=== PATIENT | female | born 1950 | race Caucasian/White ===

== ENCOUNTER → 2020-01-04 | Outpatient (CLI) | payer MEDICARE ==
[2020-01-04 13:32] LABS: BASOPHILS ABSOLUTE AUTO 0.03 K/mm3 (0.00-0.23); BASOPHILS PERCENT AUTO 0 % (0-2); EOSINOPHILS ABSOLUTE AUTO 0.16 K/mm3 (0.00-0.68); EOSINOPHILS PERCENT AUTO 1 % (0-6); Hematocrit 28.3 % (33.0-51.0); Hemoglobin 8.8 g/dL (11.5-16.0); IMMATURE GRAN ABSOLUTE AUTO 0.16 K/mm3 (0.00-0.10); IMMATURE GRAN PERCENT AUTO 1 % (0-1); LYMPHOCYTES ABSOLUTE AUTO 3.18 K/mm3 (0.84-5.20); LYMPHOCYTES PERCENT AUTO 26 % (21-46); MONOCYTES ABSOLUTE AUTO 1.22 K/mm3 (0.16-1.47); MONOCYTES PERCENT AUTO 10 % (4-13); Mean Corpuscular HGB 29.3 pg (26.0-34.0); Mean Corpuscular HGB Conc 31.1 g/dL (31.5-36.5); Mean Corpuscular Volume 94 fL (80-100); Mean Platelet Volume 9.6 fL (9.1-12.4); NEUTROPHILS ABSOLUTE AUTO 7.54 K/mm3 (1.96-9.15); NEUTROPHILS PERCENT AUTO 61 % (41-73); Platelet Count 755 K/mm3 (150-400); RDW Coefficient Variation 15.2 % (11.7-14.2); RDW Standard Deviation 52.5 fL (35.1-46.3); White Blood Cell Count 12.29 K/mm3 (4.00-11.30)
[2020-01-04 14:08] LABS: Alanine Aminotransfer (ALT/SGP 47 U/L (12-78); Albumin, Blood 1.7 g/dL (3.4-5.0); Albumin/Globulin Ratio 0.3 (0.8-1.8); Alk Phos 114 U/L (50-136); Anion Gap 4 mmol/L (6-16); Aspartate Aminotrans (AST/SGOT 43 U/L (12-37); Bilirubin, Direct <0.1 mg/dL (0.0-0.3); Bilirubin, Indirect Unable to Calculate mg/dL (0.1-0.7); Bilirubin, Total 0.2 mg/dL (0.1-1.0); Blood Urea Nitrogen 27 mg/dL (8-24); CO2, Blood 27 mmol/L (21-32); Chloride, Blood 103 mmol/L (98-108); Creatinine, Blood 0.48 mg/dL (0.40-1.00); Globulin, Blood 4.9 g/dL (2.2-4.0); Glomerular Filtration Rate >60 (60-); Glucose, Blood 99 mg/dL (70-99); Phosphorus, Blood 4.2 mg/dL (2.5-4.9); Potassium, Blood 4.5 mmol/L (3.5-5.5); Sodium, Blood 134 mmol/L (136-145); Total Protein, Blood 6.6 g/dL (6.4-8.2); Triglycerides 78 mg/dL (30-160)
== END | disposition home or self-care (01) ==
LOC: LAB SHORT 12:25 → LAB 12:25
PROVIDERS: Surgery
DX: K50.118 Crohn's disease of large intestine with other complication (principal); E43 Unspecified severe protein-calorie malnutrition; D64.9 Anemia, unspecified
CPT/HCPCS: 80053; 82248; 83735; 84100; 84478; 85025

== ENCOUNTER → 2020-01-18 | Outpatient (CLI) | payer MEDICARE ==
[2020-01-18 19:30] LABS: BASOPHILS ABSOLUTE AUTO 0.03 K/mm3 (0.00-0.23); BASOPHILS PERCENT AUTO 0 % (0-2); EOSINOPHILS ABSOLUTE AUTO 0.09 K/mm3 (0.00-0.68); EOSINOPHILS PERCENT AUTO 1 % (0-6); Hematocrit 28.2 % (33.0-51.0); Hemoglobin 8.8 g/dL (11.5-16.0); IMMATURE GRAN ABSOLUTE AUTO 0.13 K/mm3 (0.00-0.10); IMMATURE GRAN PERCENT AUTO 1 % (0-1); LYMPHOCYTES PERCENT AUTO 19 % (21-46); MONOCYTES ABSOLUTE AUTO 1.14 K/mm3 (0.16-1.47); MONOCYTES PERCENT AUTO 9 % (4-13); Mean Corpuscular HGB 27.8 pg (26.0-34.0); Mean Corpuscular HGB Conc 31.2 g/dL (31.5-36.5); Mean Corpuscular Volume 89 fL (80-100); Mean Platelet Volume 9.4 fL (9.1-12.4); NEUTROPHILS PERCENT AUTO 71 % (41-73); Platelet Count 370 K/mm3 (150-400); RDW Coefficient Variation 15.4 % (11.7-14.2); RDW Standard Deviation 50.5 fL (35.1-46.3); Red Blood Cell Count 3.17 M/mm3 (3.80-5.20); White Blood Cell Count 13.49 K/mm3 (4.00-11.30)
[2020-01-18 20:30] LABS: Alanine Aminotransfer (ALT/SGP 36 U/L (12-78); Albumin, Blood 1.7 g/dL (3.4-5.0); Albumin/Globulin Ratio 0.3 (0.8-1.8); Alk Phos 103 U/L (50-136); Anion Gap 7 mmol/L (6-16); Aspartate Aminotrans (AST/SGOT 29 U/L (12-37); Bilirubin, Direct 0.1 mg/dL (0.0-0.3); Bilirubin, Indirect 0.3 mg/dL (0.1-0.7); Bilirubin, Total 0.4 mg/dL (0.1-1.0); Blood Urea Nitrogen 20 mg/dL (8-24); Bun/Creatinine Ratio 40.2 (12.0-20.0); CO2, Blood 25 mmol/L (21-32); Calcium, Blood 7.6 mg/dL (8.5-10.1); Chloride, Blood 101 mmol/L (98-108); Glomerular Filtration Rate >60 (60-); Glucose, Blood 76 mg/dL (70-99); Magnesium, Blood 1.9 mg/dL (1.6-2.4); Phosphorus, Blood 3.3 mg/dL (2.5-4.9); Potassium, Blood 3.7 mmol/L (3.5-5.5); Sodium, Blood 133 mmol/L (136-145); Total Protein, Blood 6.7 g/dL (6.4-8.2); Triglycerides 58 mg/dL (30-160)
== END | disposition home or self-care (01) ==
LOC: LAB 19:19 → LAB SHORT 19:19
PROVIDERS: Pediatrics
DX: Z48.815 Encounter for surgical aftercare following surgery on the digestive system (principal); Z45.2 Encounter for adjustment and management of vascular access device; Z43.2 Encounter for attention to ileostomy; K50.118 Crohn's disease of large intestine with other complication; D64.9 Anemia, unspecified; E43 Unspecified severe protein-calorie malnutrition; Z98.84 Bariatric surgery status
CPT/HCPCS: 80053; 82248; 83735; 84100; 84478; 85025

== ENCOUNTER → 2020-10-31 | Outpatient (CLI) | payer MEDICARE ==
[2020-10-31 17:56] LABS: Appearance, Urine Clear (Clear); Bilirubin, Urine Neg (Neg); Blood, Urine Neg (Neg); Color, Urine Yellow (P-Yellow); Glucose Qualitative, Urine Neg (Neg); Ketones, Urine Neg (Neg); Leukocyte Esterase, Urine 1+ (Neg); Nitrite, Urine Neg (Neg); Protein, Urine Neg (Neg); Urobilinogen, Urine NORM (Normal)
[2020-10-31 18:41] LABS: Bacteria Few /hpf; Red Blood Cells, Urine 0-2 /hpf (0-2); Squamous Epithelial Cells Few /hpf (Few)
== END | disposition home or self-care (01) ==
LOC: LAB HH 16:07 → LAB 16:07
PROVIDERS: Pediatrics
DX: N39.0 Urinary tract infection, site not specified (principal); R39.9 Unspecified symptoms and signs involving the genitourinary system
CPT/HCPCS: 81001; 87086

== ENCOUNTER 2023-05-21 04:17 | Inpatient (IN) | payer MEDICARE ==
[2023-05-21] VITALS (65 sets, daily range): BP systolic 65–130; BP diastolic 31–91
[~2023-05-21] VITALS: Ht 149.9 cm; Wt 77.6 kg
--- NOTE | 2023-05-21 06:43 | NUR ---
PT ARRIVAL PT ARRIVED TO ICU AT 0600 VIA AMBULANCE GUERNY. PT TRANSFERED TO ICU BED VIA SLIDER SHEET. PT ALERT, ABLE TO ANSWER MOST QUESTIONS. HR 110-120'S SINUS TACH, LEVOPHED INFUSING AT 2MCG/MIN TO MAINTAIN MAP >65. PT ON 2LPM VIA NC, OXYGEN SATURATION > 95%. TEMP MCGINNIS IN PLACE TMAX OF 100.8. ILEOSTOMY IN PLACE WITH LIQUID BROWN OUTPUT. CENTRAL LINE TO RIJ, PIV TO LEFT AND RIGHT AC. BED IN LOWEST POSITION, CALL LIGHT WITHIN REACH. CARE CONTINUES.
[2023-05-21 08:17] LABS: BASOPHILS ABSOLUTE AUTO 0.04 K/mm3 (0.00-0.23); BASOPHILS PERCENT AUTO 0 % (0-2); EOSINOPHILS ABSOLUTE AUTO 0.01 K/mm3 (0.00-0.68); EOSINOPHILS PERCENT AUTO 0 % (0-6); Hematocrit 34.5 % (33.0-51.0); Hemoglobin 11.3 g/dL (11.5-16.0); IMMATURE GRAN ABSOLUTE AUTO 0.06 K/mm3 (0.00-0.10); IMMATURE GRAN PERCENT AUTO 0 % (0-1); LYMPHOCYTES ABSOLUTE AUTO 1.44 K/mm3 (0.84-5.20); LYMPHOCYTES PERCENT AUTO 8 % (21-46); MONOCYTES ABSOLUTE AUTO 1.59 K/mm3 (0.16-1.47); MONOCYTES PERCENT AUTO 9 % (4-13); Mean Corpuscular HGB 32.6 pg (26.0-34.0); Mean Corpuscular HGB Conc 32.8 g/dL (31.5-36.5); Mean Corpuscular Volume 99 fL (80-100); Mean Platelet Volume 9.4 fL (9.1-12.4); NEUTROPHILS ABSOLUTE AUTO 15.28 K/mm3 (1.96-9.15); NEUTROPHILS PERCENT AUTO 83 % (41-73); Platelet Count 227 K/mm3 (150-400); RDW Standard Deviation 46.8 fL (35.1-46.3); Red Blood Cell Count 3.47 M/mm3 (3.80-5.20); White Blood Cell Count 18.42 K/mm3 (4.00-11.30)
[2023-05-21 08:43] LABS: Bun/Creatinine Ratio 11.4 (12.0-20.0); Calcium, Blood 8.4 mg/dL (8.5-10.1); Creatinine, Blood 3.94 mg/dL (0.40-1.00); Potassium, Blood 5.5 mmol/L (3.5-5.5)
[2023-05-21] MEDS ORDERED: ALBU90OI INH (12:10)
[2023-05-21] MEDS ORDERED: BUPR150ER PO (12:11)
[2023-05-21] MEDS ORDERED: Voltaren100 GM TOP (12:12)
[2023-05-21] MEDS ORDERED: DULO30 PO (12:13)
[2023-05-21] MEDS ORDERED: MELA3 PO (12:14)
[2023-05-21] MEDS ORDERED: Prinivil10 MG PO (12:14)
[2023-05-21] MEDS ORDERED: PREG100 PO (12:15)
[2023-05-21 13:41] LABS: Source, Urine Clean Catch
[2023-05-21 13:50] LABS: Appearance, Urine Hazy (Clear); Bilirubin, Urine Neg (Neg); Blood, Urine 3+ (Neg); Color, Urine Yellow (P-Yellow); Glucose Qualitative, Urine 1+ (Neg); Ketones, Urine Neg (Neg); Leukocyte Esterase, Urine Neg (Neg); Nitrite, Urine Neg (Neg); Protein, Urine 4+ (Neg); Urobilinogen, Urine NORM (Normal)
[2023-05-21 14:01] LABS: Bacteria Few /hpf; Squamous Epithelial Cells Few /hpf (Few)
[2023-05-21 14:02] LABS: Transitional Epithelial Cells Rare /hpf (0-Rare)
[2023-05-21 14:03] LABS: Mucus Light (0-Heavy)
--- NOTE | 2023-05-21 19:01 | NUR ---
Shift summary. Pt rested in bed throughout shift. Levophed infusing at 4 mcg/min currently, NS infusing at 100 ml/hr. Pt up to bedside commode w/out difficulty several times this shift. No acute events this shift. See chart for further details. Will continue to monitor and report off to nightshift RN.
--- NOTE | 2023-05-21 19:30 | NUR ---
ASSUMPTION OF CARE BEDSIDE SHIFT REPORT RECEIVED FROM DAYSHIFT RN. PT RESTING IN BED, ALERT AND ORIENTED X 4, PT ABLE TO ANSWER QUESTIONS AND MAKE NEEDS KNOWN. HR 100-120'S SINUS TACH, LEVOPHED INFUSING AT 4MCG/MIN TO MAINTAIN MAP >65. PT ON RA, OXYGEN SATURATION >95%. PT USES BEDSIDE COMMODE TO VOID, ILEOSTOMY IN PLACE TO RIGHT ABDOMEN. CENTRAL LINE TO RIJ INFUSING NS AT 100MLS/HR, PIV TO RAC SL. BED IN LOWEST POSITION, CALL LIGHT WITHIN REACH. CARE CONTINUES.
[2023-05-22] VITALS (83 sets, daily range): BP systolic 80–146; BP diastolic 40–106
[2023-05-22 03:52] LABS: BASOPHILS ABSOLUTE AUTO 0.03 K/mm3 (0.00-0.23); BASOPHILS PERCENT AUTO 0 % (0-2); EOSINOPHILS ABSOLUTE AUTO 0.04 K/mm3 (0.00-0.68); EOSINOPHILS PERCENT AUTO 0 % (0-6); Hematocrit 34.6 % (33.0-51.0); IMMATURE GRAN ABSOLUTE AUTO 0.07 K/mm3 (0.00-0.10); IMMATURE GRAN PERCENT AUTO 0 % (0-1); LYMPHOCYTES ABSOLUTE AUTO 2.31 K/mm3 (0.84-5.20); LYMPHOCYTES PERCENT AUTO 14 % (21-46); MONOCYTES ABSOLUTE AUTO 1.51 K/mm3 (0.16-1.47); MONOCYTES PERCENT AUTO 9 % (4-13); Mean Corpuscular HGB 32.2 pg (26.0-34.0); Mean Corpuscular HGB Conc 31.8 g/dL (31.5-36.5); Mean Corpuscular Volume 101 fL (80-100); Mean Platelet Volume 9.7 fL (9.1-12.4); NEUTROPHILS ABSOLUTE AUTO 12.56 K/mm3 (1.96-9.15); NEUTROPHILS PERCENT AUTO 76 % (41-73); Platelet Count 206 K/mm3 (150-400); RDW Coefficient Variation 13.2 % (11.7-14.2); RDW Standard Deviation 49.2 fL (35.1-46.3); Red Blood Cell Count 3.42 M/mm3 (3.80-5.20); White Blood Cell Count 16.52 K/mm3 (4.00-11.30)
[2023-05-22 04:20] LABS: Albumin, Blood 2.5 g/dL (3.4-5.0); Anion Gap 8 mmol/L (6-16); Blood Urea Nitrogen 45 mg/dL (8-24); Bun/Creatinine Ratio 9.3 (12.0-20.0); CO2, Blood 19 mmol/L (21-32); Chloride, Blood 110 mmol/L (98-108); Creatinine, Blood 4.85 mg/dL (0.40-1.00); Glomerular Filtration Rate 9 (60-); Glucose, Blood 119 mg/dL (70-99); Phosphorus, Blood 4.6 mg/dL (2.5-4.9); Potassium, Blood 5.2 mmol/L (3.5-5.5); Sodium, Blood 137 mmol/L (136-145)
--- NOTE | 2023-05-22 06:01 | NUR ---
SHIFT SUMMARY PT RESTING IN BED. ALERT AND ORIENTED X4. PT DOES HAVE TIMES OF CONFUSION BUT IS EASILY REORIENTED. PT ABLE TO ANSWER QUESTIONS, FOLLOW COMMANDS, AND MAKE NEEDS KNOWN. HR 110-120'S SINUS TACH, BP LABILE, LEVOPHED INFUSING TO MAINTAIN MAP >65. PT ON RA OXYGEN SATURATION >95% PT DENIES SOB OR CP. ILEOSTOMY IN PLACE TO RIGHT ABDOMEN. PT USES BEDSIDE COMMODE TO VOID, SBA. CENTRAL LINE TO RIJ INFUSING. NS INFUSING AT 100MLS/HR. BED IN LOWEST POSITION, CALL LIGHT WITHIN REACH. CARE CONTINUES.
--- NOTE | 2023-05-22 07:32 | NUR ---
Assumed care, bedside report received from nightshift RN. Pt resting in bed, alert and oriented, on RA. Pt helped to bedside commode and back to bed. Levophed infusing at 4 mcg/min, NS 100 ml/hr. VS stable, will continue to monitor.
[2023-05-22 12:21] LABS: Adenovirus Not Detected (NOT DETECT); Bordetella pertussis Not Detected (NOT DETECT); Chlamydophila pneumoniae Not Detected (NOT DETECT); Coronavirus 229E Not Detected (NOT DETECT); Coronavirus HKU1 Not Detected (NOT DETECT); Coronavirus NL63 Not Detected (NOT DETECT); Coronavirus OC43 Not Detected (NOT DETECT); Human Metapneumovirus Not Detected (NOT DETECT); Human Rhinovirus/Enterovirus Not Detected (NOT DETECT); Influenza A/2009-H1 Not Detected (NOT DETECT); Influenza A/H1 Not Detected (NOT DETECT); Influenza A/H3 Not Detected (NOT DETECT); Influenza B Not Detected (NOT DETECT); Mycoplasma pneumoniae Not Detected (NOT DETECT); Parainfluenza Virus 1 Not Detected (NOT DETECT); Parainfluenza Virus 2 Not Detected (NOT DETECT); Parainfluenza Virus 3 Not Detected (NOT DETECT); Parainfluenza Virus 4 Not Detected (NOT DETECT); Respiratory Syncytial Virus Not Detected (NOT DETECT); SARS-Cov-2 (COVID-19), BioFire Detected (NOT DETECT)
--- NOTE | 2023-05-22 18:54 | NUR ---
Shift summary. Pt somewhat improved this shift. Able to ambulate with less difficulty this shift. Up to chair for breakfast and dinner, using bedside commode to void. Pt placed in isolation this shift for positive covid test. So far, displaying very mild symptoms, no respiratory symptoms at all. Levophed infusing at 4 mcg/min, NS 100 ml/hr. No acute changes this shift, see chart for further details. Will report off to nightshift RN.
--- NOTE | 2023-05-22 21:30 | NUR ---
ASSUMPTION OF CARE REPORT RECEIVED FROM DAYSHIFT RN. PT RESTING IN BED, ALERT AND ORIENTED. PT ABLE TO ANSWER QUESTIONS, FOLLOW COMMANDS AND MAKE NEEDS KNOWN. HR 110-120'S SINUS TACH, BP LABILE, LEVOPHED INFUSING AT 4MCG/MIN TO MAINTAIN MAP >65, PT DENIES CP OR SOB. PT ON RA, OXYGEN SATURATION >95%. PT AMBULATES TO BEDSIDE COMMODE TO VOID WITH SBA. CENTRAL LINE TO RIJ INFUSING NS AT 100MLS/HR. PT COMPLAINED OF 6/10 PAIN IN LOWER BACK, MEDICATED WITH 10MG OF OXYCODONE PER EMAR. BED IN LOWEST POSITION, CALL LIGHT WITHIN REACH. CARE CONTINUES.
[2023-05-23] VITALS (70 sets, daily range): BP systolic 88–146; BP diastolic 46–104
[2023-05-23 05:26] LABS: Hematocrit 33.8 % (33.0-51.0); Hemoglobin 10.9 g/dL (11.5-16.0); Mean Corpuscular HGB 32.5 pg (26.0-34.0); Mean Corpuscular HGB Conc 32.2 g/dL (31.5-36.5); Mean Corpuscular Volume 101 fL (80-100); Mean Platelet Volume 9.7 fL (9.1-12.4); Platelet Count 185 K/mm3 (150-400); RDW Coefficient Variation 13.2 % (11.7-14.2); RDW Standard Deviation 49.1 fL (35.1-46.3); Red Blood Cell Count 3.35 M/mm3 (3.80-5.20); White Blood Cell Count 9.58 K/mm3 (4.00-11.30)
--- NOTE | 2023-05-23 05:49 | NUR ---
SHIFT SUMMARY PT RESTING IN BED, ALERT AND ORIENTED X4. PT ABLE TO ANSWER QUESTIONS, FOLLOW COMMANDS AND MAKE HER NEEDS KNOWN. PT HAS BRIEF PERIODS OF CONFUSION, EASILY REORIENTED, HR 100-120'S, LEVOPHED INFUSING TO MAINTAIN MAP >65, CURRENTLY INFUSING AT 1MCG/MIN. PT ON RA, OXYGEN SATURATION >95%. ILEOSTOMY IN PLACE TO RIGHT ABDOMEN. CENTRAL LINE IN PLACE TO RIJ, INFUSING NS AT 100MLS/HR. PT HAS COMPLAINED OF PAIN TWICE THIS SHIFT, MEDICATED WITH OXYCODONE AND FENTANYL PER EMAR. PT USES BEDSIDE COMMODE TO VOID, SBA. BED IN LOWEST POSITION, CALL LIGHT WITHIN REACH. CARE CONTINUES.
[2023-05-23 06:24] LABS: Alanine Aminotransfer (ALT/SGP 24 U/L (12-78); Albumin, Blood 2.5 g/dL (3.4-5.0); Albumin/Globulin Ratio 0.6 (0.8-1.8); Alk Phos 78 U/L (50-136); Anion Gap 7 mmol/L (6-16); Aspartate Aminotrans (AST/SGOT 23 U/L (12-37); Bilirubin, Total 0.2 mg/dL (0.1-1.0); Blood Urea Nitrogen 38 mg/dL (8-24); Bun/Creatinine Ratio 9.9 (12.0-20.0); CO2, Blood 18 mmol/L (21-32); Calcium, Blood 8.1 mg/dL (8.5-10.1); Chloride, Blood 115 mmol/L (98-108); Creatinine, Blood 3.85 mg/dL (0.40-1.00); Globulin, Blood 3.9 g/dL (2.2-4.0); Glomerular Filtration Rate 12 (60-); Glucose, Blood 112 mg/dL (70-99); Potassium, Blood 4.8 mmol/L (3.5-5.5); Sodium, Blood 140 mmol/L (136-145); Total Protein, Blood 6.4 g/dL (6.4-8.2); Vancomycin, Random 20.3 ug/mL
--- NOTE | 2023-05-23 07:00 | NUR ---
ASSUME CARE: I have assumed care of this patient.
--- NOTE | 2023-05-23 12:59 | NUR ---
Spiritual Care Attempted. Unbeknownst to this motorboat operator, Pt. was sitting on her room commode and declined spiritual care. The motorboat operator apologized for the awkward visit. Spouse (who is also a [employer] Manager) verbalized gratitude for the spiritual care visit.
--- NOTE | 2023-05-23 15:00 | NUR ---
[facility] MEDICAL RECORDS: [facility] called for blood culture results. No answer; message left.
--- NOTE | 2023-05-23 19:01 | NUR ---
SHIFT SUMMARY: Pt's at bedside throughout the day. Levophed was titrated off successfully after midodrine administration. Pt notes that she does not like the food at the hospital and has family bring in food. She was up to bedside commode with standby assist several times today. Ostomy with good output. She and her changed the appliance today with home supplies.
[2023-05-24] VITALS (13 sets, daily range): BP systolic 116–155; BP diastolic 50–77
[2023-05-24 02:08] LABS: COMPLEMENT C3, SERUM 148 mg/dL (82-167); COMPLEMENT C4, SERUM 29 mg/dL (12-38)
[2023-05-24 04:08] LABS: Albumin, Blood 2.5 g/dL (3.4-5.0); Anion Gap 5 mmol/L (6-16); Blood Urea Nitrogen 29 mg/dL (8-24); Bun/Creatinine Ratio 10.5 (12.0-20.0); CO2, Blood 20 mmol/L (21-32); Calcium, Blood 7.9 mg/dL (8.5-10.1); Chloride, Blood 119 mmol/L (98-108); Creatinine, Blood 2.77 mg/dL (0.40-1.00); Glomerular Filtration Rate 18 (60-); Glucose, Blood 106 mg/dL (70-99); Potassium, Blood 4.9 mmol/L (3.5-5.5); Sodium, Blood 144 mmol/L (136-145); Vancomycin, Random 12.4 ug/mL
--- NOTE | 2023-05-24 07:00 | NUR ---
ASSUME CARE: I have assumed care of this patient.
--- NOTE | 2023-05-24 09:22 | NUR ---
[facility]: RN unable to speak with anyone regarding blood culture results. Message left.
[2023-05-24 16:07] LABS: ANA DIRECT Negative (Negative); ANTI-DNA (DS) AB QN <1 IU/mL (0-9); RNP ANTIBODIES 0.5 AI (0.0-0.9); SJOGREN'S ANTI-SS-A <0.2 AI (0.0-0.9); SJOGREN'S ANTI-SS-B <0.2 AI (0.0-0.9); SMITH ANTIBODIES <0.2 AI (0.0-0.9)
--- NOTE | 2023-05-24 16:35 | NUR ---
SHIFT/TRANSFER SUMMARY: Pt to room 354 from ICU 13 via wheelchair by AUTOMATIC LATHE SETTER. at bedside and updated. BP maintained with midodrine. Last dose held for hypertension; Dr Figueroa notified. IJ removed without complication.
--- NOTE | 2023-05-24 18:02 | NUR ---
SHIFT SUMMARY ARRIVED TO FLOOR THIS SHIFT FROM ICU AROUND 1645. CONTINUING ISOLATION PRECAUTIONS. ON ROOM AIR. VSS. A/O X4. IN ROOM. CENTRAL LINE DRESSING IN PLACE COVERED WITH NON-ADHERENT AND TEGADERM, DRESSING WAS STATED TO BE REMOVED AROUND 0800 ON 05/24, OKAY TO COME OFF IN 24 HOURS. SMALL AMOUNT OF RED DRAINAGE PRESENT. EDUCATION GIVEN SURROUNDING THIS DRESSING. ILEOSTOMY IN PLACE AND EFFLUENT PRESENT, STATED SHE WOULD LIKE TO CONITNUE TO MANAGE THIS INDEPENDENTLY POSSIBLE. WILL CONTINUE TO MONITOR
--- NOTE | 2023-05-25 04:02 | NUR ---
SHIFT SUMMARY PATIENT HAD NO ACUTE CHANGES. AXOX 4 AND SBA TO BR. PIV REMAINS INTACT. ON ROOM AIR. DENIES CHEST PAIN, SOB, AND N/V. TELE MONITOR NSR 93. CENTRAL LINE DRESSING INTACT. ILEOSTOMY RLQ. VSS/AFEBRILE. COOPERATIVE WITH CARE. CALL LIGHT IN REACH. BED IN LOWEST POSITION. WILL CONTINUE TO MONITOR UNTIL DAY SHIFT NURSE ASSUMES CARE.
[2023-05-25 04:39] VITALS: BP 175/74
[2023-05-25 06:53] LABS: Albumin, Blood 2.4 g/dL (3.4-5.0); Anion Gap 6 mmol/L (6-16); Blood Urea Nitrogen 24 mg/dL (8-24); Bun/Creatinine Ratio 13.3 (12.0-20.0); CO2, Blood 20 mmol/L (21-32); Calcium, Blood 8.2 mg/dL (8.5-10.1); Chloride, Blood 115 mmol/L (98-108); Glomerular Filtration Rate 30 (60-); Glucose, Blood 91 mg/dL (70-99); Phosphorus, Blood 3.6 mg/dL (2.5-4.9); Potassium, Blood 4.6 mmol/L (3.5-5.5); Sodium, Blood 141 mmol/L (136-145)
[2023-05-25 08:06] VITALS: BP 168/65
[2023-05-25 12:34] VITALS: BP 149/73
[2023-05-25 15:30] VITALS: BP 159/76
[2023-05-25 16:02] VITALS: BP 183/79
--- NOTE | 2023-05-25 17:50 | NUR ---
SHIFT SUMMARY PATIENT AMBULATING TO BATHROOM THIS SHIFT SBA-INDEPENDENT. HELPING TO MANAGE ILEOSTOMY. C/O PAIN THIS SHIFT, REQUIRING FENTANYL IN ADDITION TO OXY, CHRONIC BACK PAIN. LIDOCAINE PATCH OFFERED AND DECLINED. ON ROOM AIR. VSS. MIDODRINE DC AND STARTED ON LISINOPRIL. WILL CONTINUE TO MONITOR
[2023-05-25 20:09] VITALS: BP 170/75
--- NOTE | 2023-05-26 04:21 | NUR ---
SHIFT SUMMARY; NO ACUTE CHANGES OVERNIGHT. THE PT IS AXO X4 AND INDEPENDENT IN THE ROOM. THE PT HAS A ILEOSTOMY WHICH HER AND HER TAKE CARE OF. THE PT HAS BEEN SLEEPING FOR THE MAJORITY OF THE NIGHT. THE PT HAS REQUESTED PRN PAIN MEDICATION A FEW TIMES W/ GOOD RELIEF. THE PT DENIES ANY SOB, CHEST PAIN/PRESSURE OR N/V. CURRENTLY THE PT IS SLEEPING IN BED WITH THE BED IN THE LOWEST POSITION AND THE CALL LIGHT AT BEDSIDE. FIRE SAFETY ROUNDS COMPLETED.
[2023-05-26 05:01] VITALS: BP 150/60
[2023-05-26 05:02] LABS: BASOPHILS ABSOLUTE AUTO 0.02 K/mm3 (0.00-0.23); BASOPHILS PERCENT AUTO 0 % (0-2); EOSINOPHILS ABSOLUTE AUTO 0.11 K/mm3 (0.00-0.68); EOSINOPHILS PERCENT AUTO 2 % (0-6); Hematocrit 28.6 % (33.0-51.0); Hemoglobin 9.4 g/dL (11.5-16.0); IMMATURE GRAN ABSOLUTE AUTO 0.02 K/mm3 (0.00-0.10); IMMATURE GRAN PERCENT AUTO 0 % (0-1); LYMPHOCYTES ABSOLUTE AUTO 1.73 K/mm3 (0.84-5.20); LYMPHOCYTES PERCENT AUTO 36 % (21-46); MONOCYTES ABSOLUTE AUTO 0.65 K/mm3 (0.16-1.47); MONOCYTES PERCENT AUTO 14 % (4-13); Mean Corpuscular HGB 31.9 pg (26.0-34.0); Mean Corpuscular HGB Conc 32.9 g/dL (31.5-36.5); Mean Corpuscular Volume 97 fL (80-100); Mean Platelet Volume 9.6 fL (9.1-12.4); NEUTROPHILS ABSOLUTE AUTO 2.28 K/mm3 (1.96-9.15); NEUTROPHILS PERCENT AUTO 47 % (41-73); Platelet Count 144 K/mm3 (150-400); RDW Coefficient Variation 13.4 % (11.7-14.2); RDW Standard Deviation 47.9 fL (35.1-46.3); Red Blood Cell Count 2.95 M/mm3 (3.80-5.20); White Blood Cell Count 4.81 K/mm3 (4.00-11.30)
[2023-05-26 05:23] LABS: Albumin, Blood 2.5 g/dL (3.4-5.0); Anion Gap 5 mmol/L (6-16); Blood Urea Nitrogen 16 mg/dL (8-24); CO2, Blood 24 mmol/L (21-32); Calcium, Blood 8.1 mg/dL (8.5-10.1); Chloride, Blood 115 mmol/L (98-108); Creatinine, Blood 1.45 mg/dL (0.40-1.00); Glomerular Filtration Rate 39 (60-); Glucose, Blood 112 mg/dL (70-99); Phosphorus, Blood 3.3 mg/dL (2.5-4.9); Potassium, Blood 4.3 mmol/L (3.5-5.5); Sodium, Blood 144 mmol/L (136-145)
[2023-05-26 07:45] VITALS: BP 154/80
[2023-05-26 13:09] LABS: ATYPICAL PANCA <1:20 titer (Neg:<1:20); CYTOPLASMIC (C-ANCA) <1:20 titer (Neg:<1:20); PERINUCLEAR (P-ANCA) <1:20 titer (Neg:<1:20)
[2023-05-26] MEDS ORDERED: ACET325 PO (14:02)
[2023-05-26] MEDS ORDERED: AMOCLA875 PO (14:16)
[2023-05-26] MEDS ORDERED: BENADRYL25 MG PO (14:16)
[2023-05-26] MEDS ORDERED: FAMO10 PO (14:17)
[2023-05-26] MEDS ORDERED: LIDO700A20 TOP (14:17)
[2023-05-26] MEDS ORDERED: VISBIOME 112.51 EACH PO (14:18)
[2023-05-26] MEDS ORDERED: OXYC5 PO (14:18)
[2023-05-26] MEDS ORDERED: ONDA4ODT MM (14:18)
--- NOTE | 2023-05-26 15:00 | NUR ---
DISCHARGE: PT D/C @9394 VIA WHEELCHAIR WITH . IV REMOVED FROM R. WRIST W/O COMPLICATIONS. MEDICATIONS FAXED TO [facility] ON [address]. HARD SCRIPT FOR CLIVE SENT WITH PT IN PT PACKET. PT STATED SHE HAD BEEN TRYING TO GET AHOLD OF PCP TO MAKE FOLLOW-UP APPOINTMENT.
== END 2023-05-26 14:52 | disposition home or self-care (01) | DRG 871 ==
LOC: ICUE 04:17 → MEDS 06:01 → ICUE 05-22 19:19 → MEDS 05-24 16:49 → ENPENDDIS 05-26 13:05 → MEDS 05-26 14:52
PROVIDERS: Hospitalist; Internal Medicine; ADMIT Internal Medicine
PROC: 3E03329 Introduction of Other Anti-infective into Peripheral Vein, Percutaneous Approach (ICD-10-PCS; principal; 2023-05-21)
PROC: 0T9B70Z Drainage of Bladder with Drainage Device, Via Natural or Artificial Opening (ICD-10-PCS; 2023-05-21)
PROC: 3E033XZ Introduction of Vasopressor into Peripheral Vein, Percutaneous Approach (ICD-10-PCS; 2023-05-21)
PROC: 3E02340 Introduction of Influenza Vaccine into Muscle, Percutaneous Approach (ICD-10-PCS; 2023-05-21)
PROC: 8E0ZXY6 Isolation (ICD-10-PCS; 2023-05-22)
PROC: B24BZZZ Ultrasonography of Heart with Aorta (ICD-10-PCS; 2023-05-22)
DX: A41.9 Sepsis, unspecified organism (principal); N17.0 Acute kidney failure with tubular necrosis; R65.21 Severe sepsis with septic shock; U07.1 COVID-19; E87.1 Hypo-osmolality and hyponatremia; N39.0 Urinary tract infection, site not specified; E87.20 Acidosis, unspecified; Z66 Do not resuscitate; N18.30 Chronic kidney disease, stage 3 unspecified; E87.5 Hyperkalemia; F32.A Depression, unspecified; F41.9 Anxiety disorder, unspecified; G89.29 Other chronic pain; E66.9 Obesity, unspecified; M54.50 Low back pain, unspecified; I12.9 Hypertensive chronic kidney disease with stage 1 through stage 4 chronic kidney disease, or unspecified chronic kidney disease; Z98.84 Bariatric surgery status; Z90.49 Acquired absence of other specified parts of digestive tract; Z86.19 Personal history of other infectious and parasitic diseases; Z93.2 Ileostomy status; Z98.1 Arthrodesis status; Z68.35 Body mass index [BMI] 35.0-35.9, adult; Z23 Encounter for immunization
CPT/HCPCS: 0202U; 36415; 80048; 80053; 80069; 80202; 81001; 82330; 82533; 82570; 83935; 84156; 84300; 85025; 85027; 86037; 86160; 86225; 86235; 87040; 87086; 93306; 94762; 97162; 97165; 97530; A9270; J0696; J1644; J3010; J3370; J7030; J7050; J7060; Q2036